=== PATIENT | female | born 1970 | race Caucasian/White ===

== ENCOUNTER → 2019-04-17 | Outpatient (CLI) | payer BC ==
--- NOTE | 2019-04-21 09:16 | MM ---
Reason for exam: screening (asymptomatic). Last mammogram was performed 5 years and 1 month ago. History: Patient is nulliparous. Physical Findings: A clinical breast exam by your physician is recommended on an annual basis and results should be correlated with mammographic findings. MG Screening Mammo w CAD Bilateral CC and MLO view(s) were taken. Prior study comparison: March 17, 2014, bilateral MG screening mammo w CAD. December 10, 2007, mammogram, performed at [facility]. There are scattered fibroglandular densities. No significant changes when compared with prior studies. ASSESSMENT: Negative, BI-RAD 1 RECOMMENDATION: Routine screening mammogram of both breasts in 1 year.
== END | disposition home or self-care (01) ==
LOC: RADMAMWWP 09:46
PROVIDERS: ATTEND Family Medicine
DX: Z12.31 Encounter for screening mammogram for malignant neoplasm of breast (principal)
CPT/HCPCS: 77067

== ENCOUNTER → 2019-05-13 | Outpatient (CLI) | payer BC ==
--- NOTE | 2019-05-13 14:45 | US ---
EXAMINATION TYPE: US thyroid st tissue head/neck DATE OF EXAM: 05/13/2019 COMPARISON: NONE CLINICAL HISTORY: 48-year-old female R94.6 ABN THYROID FUNCTION STUDIES. Abnormal thyroid function te st. TECHNIQUE: Multiple sonographic images of the thyroid gland are obtained. FINDINGS: GLAND SIZE: Right Lobe: 4.5 x 1.4 x 1.7 cm Overall Parenchyma: heterogenous Left Lobe: 4.2 x 1.5 x 1.8 cm Overall Parenchyma: heterogeneous Isthmus Thickness: 0.3 cm NODULES RIGHT: # of nodules measured on right: 0 LEFT: # of nodules measured on left: 0 ISTHMUS: # of nodules measured in the isthmus: 0 Bilateral neck scanned, no evidence of lymphadenopathy. IMPRESSION: Normal-sized thyroid gland without discrete nodule.
== END | disposition home or self-care (01) ==
LOC: RADUSWWP 10:01
PROVIDERS: ATTEND Family Medicine
DX: R94.6 Abnormal results of thyroid function studies (principal)
CPT/HCPCS: 76536

== ENCOUNTER → 2019-05-14 | Outpatient (CLI) | payer BC ==
--- NOTE | 2019-05-15 14:30 | NM ---
EXAMINATION TYPE: NM thyroid image w uptake DATE OF EXAM: 05/15/2019 COMPARISON: Thyroid ultrasound from yesterday HISTORY: Abnormal thyroid lab values per order. Symptoms of heat and cold intolerance with insomnia a nd palpitations for patient. TECHNIQUE: Thyroid iodine uptake is calculated and images performed after the oral administration of 305 uCi I-123 uCi 1-123 Capsule. FINDINGS: There is normal distribution of activity throughout the gland. The 4 hour iodine uptake is calculated at 15% (normal range 8-14%) slightly elevated from the normal range. The 24-hour iodine u ptake is calculated at 37% (normal range 15-35%) slightly elevated from the normal range. IMPRESSION: Increased uptake consistent with hyperthyroidism. Normal scan seen without hot nodule cor relates with ultrasound.
== END | disposition home or self-care (01) ==
LOC: RADNMMAIN 08:41
PROVIDERS: ATTEND Family Medicine
DX: E05.90 Thyrotoxicosis, unspecified without thyrotoxic crisis or storm (principal)
CPT/HCPCS: 78014; A9516

== ENCOUNTER → 2019-07-23 | Outpatient (CLI) | payer BC ==
[2019-07-23 17:26] LABS: ALT 29 U/L (8-44); AST 20 U/L (13-35); African American GFR (CKD) 87.6 (60.0-200.0); Albumin/Globulin Ratio 1.46 (1.60-3.17); Alkaline Phosphatase 77 U/L (41-126); BUN/Creat Ratio 11.11 Ratio (12.00-20.00); Calcium 9.1 mg/dL (8.7-10.3); Chloride 105 mmol/L (96-109); Globulin 2.8 g/dL (1.6-3.3); Glucose 83 mg/dL (70-110); Potassium 4.9 mmol/L (3.5-5.5); Sodium 140 mmol/L (135-145); Total Bilirubin 0.5 mg/dL (0.2-1.2); Total Protein 6.9 g/dL (6.2-8.2)
== END | disposition home or self-care (01) ==
LOC: LABWHC1 09:48
PROVIDERS: ATTEND Internal Medicine Endocrinology, Diabetes & Metabolism
DX: E05.00 Thyrotoxicosis with diffuse goiter without thyrotoxic crisis or storm (principal)
CPT/HCPCS: 36415; 80053; 84439; 84443; 84445; 84480

== ENCOUNTER → 2019-09-12 | Outpatient (CLI) | payer BC ==
[2019-09-12 16:33] LABS: T4, Free (Free Thyroxine) 0.9 ng/dL (0.80-1.80)
== END | disposition home or self-care (01) ==
LOC: LABWHC1 09:52
PROVIDERS: ATTEND Internal Medicine Endocrinology, Diabetes & Metabolism
DX: E05.00 Thyrotoxicosis with diffuse goiter without thyrotoxic crisis or storm (principal)
CPT/HCPCS: 36415; 84439; 84443; 84480

== ENCOUNTER → 2019-12-26 | Outpatient (CLI) | payer BC ==
[2019-12-27 00:36] LABS: T4, Free (Free Thyroxine) 1.2 ng/dL (0.80-1.80)
== END | disposition home or self-care (01) ==
LOC: LABWHC1 15:59
PROVIDERS: ATTEND Internal Medicine Endocrinology, Diabetes & Metabolism
DX: E05.00 Thyrotoxicosis with diffuse goiter without thyrotoxic crisis or storm (principal)
CPT/HCPCS: 36415; 84439; 84443; 84480

== ENCOUNTER → 2020-04-29 | Outpatient (CLI) | payer BC ==
[2020-04-29 17:56] LABS: Albumin/Globulin Ratio 1.48 (1.60-3.17); Anion Gap 8.9 mmol/L (4.00-12.00); BUN/Creat Ratio 16.25 Ratio (12.00-20.00); Calcium 8.9 mg/dL (8.7-10.3); Carbon Dioxide 25.1 mmol/L (21.6-31.8); Globulin 2.7 g/dL (1.6-3.3); Non-African American GFR(CKD) 87.2 (60.0-200.0); Potassium 4.9 mmol/L (3.5-5.5); Total Bilirubin 0.6 mg/dL (0.2-1.2); Total Protein 6.7 g/dL (6.2-8.2)
== END | disposition home or self-care (01) ==
LOC: LABWHC1 09:35
PROVIDERS: ATTEND Internal Medicine Endocrinology, Diabetes & Metabolism
DX: E05.00 Thyrotoxicosis with diffuse goiter without thyrotoxic crisis or storm (principal)
CPT/HCPCS: 36415; 80053; 84439; 84443; 84480

== ENCOUNTER → 2021-04-15 | Outpatient (CLI) | payer OTHER ==
--- NOTE | 2021-04-15 12:38 | ECHOF ---
Referral Reason:R01.1 Murmur MEASUREMENTS -------- HEIGHT: 160.0 cm WEIGHT: 103.4 kg BP: RVIDd: 3.3 cm (< 3.3) IVSd: 0.6 cm (0.6 - 1.1) LVIDd: 4.6 cm (3.9 - 5.3) LVPWd: 0.8 cm (0.6 - 1.1) IVSs: 1.3 cm LVIDs: 2.4 cm LVPWs: 1.9 cm LAESV Index (A-L): 23.35 ml/m Ao Diam: 3.1 cm (2.0 - 3.7) AV Cusp: 1.0 cm (1.5 - 2.6) LA Diam: 2.6 cm (2.7 - 3.8) MV EXCURSION: 18.395 mm (> 18.000) MV EF SLOPE: 105 mm/s (70 - 150) EPSS: 1.0 cm MV E Jeff: 1.00 m/s MV DecT: 184 ms MV A Jeff: 0.89 m/s MV E/A Ratio: 1.12 AV maxP.31 mmHg AV meanP.39 mmHg AR PHT: 297 ms RAP: 5.00 mmHg RVSP: 23.69 mmHg FINDINGS -------- This was a technically good study. The left ventricular size is normal. Left ventricular wall thickness is normal. Overall left vent ricular systolic function is normal with, an EF between 55 - 60 %. The diastolic filling pattern is normal for the age of the patient 12.74. The right ventricle is mildly enlarged. The left atrial size is normal. Normal LA size by volume 22+/-6 ml/m2. The right atrial size is normal. There is mild to moderate aortic valve sclerosis. There is mild aortic regurgitation. There is mi ld aortic stenosis present. Peak/mean gradient across the Aortic Valve is 21.31mmHg / 12.39mmHg. Can't exclude possible Bicuspid Aov. The mitral valve is normal. There is trace mitral regurgitation. The tricuspid valve appears structurally normal. Trace tricuspid regurgitation present. Right ayaka tricular systolic pressure is normal at < 35 mmHg. There is no pulmonic regurgitation present. The aortic root size is normal. Normal inferior vena cava with normal inspiratory collapse consistent with estimated right atrial pre ssure of 5 mmHg. There is no pericardial effusion. CONCLUSIONS -------- 1. The left ventricular size is normal. 2. Left ventricular wall thickness is normal. 3. Overall left ventricular systolic function is normal with, an EF between 55 - 60 %. 4. The diastolic filling pattern is normal for the age of the patient 12.74 5. The right ventricle is mildly enlarged. 6. There is mild aortic regurgitation. 7. There is mild aortic stenosis present. 8. Peak/mean gradient across the Aortic Valve is 21.31mmHg / 12.39mmHg. 9. Can't exclude possible Bicuspid Aov. 10. There is trace mitral regurgitation. 11. Trace tricuspid regurgitation present. 12. There is no pericardial effusion. [employer]LECT[employer] REPA[employer] SUPERVISOR: Lenka Castaneda RDCS
--- NOTE | 2021-04-19 10:19 | MM ---
Reason for exam: screening (asymptomatic). Last mammogram was performed 2 years ago. History: Patient is nulliparous. Taking hormonal contraceptives for 2 years beginning at age 48. Physical Findings: A clinical breast exam by your physician is recommended on an annual basis and results should be correlated with mammographic findings. MG Screening Mammo w CAD Bilateral CC and MLO view(s) were taken. Prior study comparison: April 17, 2019, bilateral MG screening mammo w CAD. March 17, 2014, bilateral MG screening mammo w CAD. There are scattered fibroglandular densities. No significant changes when compared with prior studies. ASSESSMENT: Negative, BI-RAD 1 RECOMMENDATION: Routine screening mammogram of both breasts in 1 year.
== END | disposition home or self-care (01) ==
LOC: RADMAMWWP 07:33
PROVIDERS: ATTEND Family Medicine
DX: Z12.31 Encounter for screening mammogram for malignant neoplasm of breast (principal); I08.3 Combined rheumatic disorders of mitral, aortic and tricuspid valves
CPT/HCPCS: 77067; 93306

== ENCOUNTER → 2024-02-15 | Outpatient (CLI) | payer BC ==
--- NOTE | 2024-02-18 08:34 | MM ---
Reason for Exam: Screening (asymptomatic). Last mammogram was performed 2 year(s) and 10 month(s) ago. Patient History: Menarche at age 15. Patient has no children. Perimenopausal. Currently using Hormonal Contraceptives, beginning at age 48 for 2 years. Risk Values: Mari 5 year model risk: 1.1%. NCI Lifetime model risk: 8.8%. Prior Study Comparison: 03/17/2014 Bilateral Screening Mammogram, [facility]. 04/17/2019 Bilateral Screening Mammogram, [facility]. 04/15/2021 Bilateral Screening Mammogram, [facility]. Tissue Density: The breasts are almost entirely fatty. Findings: Analyzed By CAD. Right breast: There is no suspicious group of microcalcifications or new suspicious mass. Left breast: There is no suspicious group of microcalcifications or new suspicious mass. Overall Assessment: Negative, BI-RAD 1 Management: Screening Mammogram of both breasts in [address] [facility] will attempt to contact patient to return for supplemental views and ultrasound if indicated. Patient should continue monthly self-breast exams. A clinical breast exam by your physician is recommended on an annual basis. This exam should not preclude additional follow-up of suspicious palpable abnormalities. Note on Mari scores and lifetime risk: 1. A Mari score greater than 3% is considered moderate risk. If this is the case, consider specialist referral to assess eligibility for a risk reducing agent. 2. If overall lifetime risk for the development of breast cancer is 20% or higher, the patient may qualify for future screening with alternating mammogram and breast MRI. Electronically signed and approved by: Saúl Palumbo DO
== END | disposition home or self-care (01) ==
LOC: RADMAMWWP 06:49
PROVIDERS: ATTEND Family Medicine
DX: Z12.31 Encounter for screening mammogram for malignant neoplasm of breast (principal)
CPT/HCPCS: 77067

== ENCOUNTER → 2025-01-14 | Outpatient (CLI) | payer BC ==
--- NOTE | 2025-01-14 08:51 | US ---
EXAMINATION TYPE: US transvaginal DATE OF EXAM: 01/14/2025 COMPARISON: NONE CLINICAL INDICATION: Female, 54 years old with history of N95.0 POSTMENOPAUSAL BLEEDING; Postmenopaus al bleeding TECHNIQUE: Transvaginal (TV). Doppler imaging: Not performed. FINDINGS: EXAM MEASUREMENTS: Uterus: 5.3 x 3.3 x 4.1 cm Endometrial Stripe: .3 cm Left Ovary: 2.7 x 2.3 x 2.5 cm 1. Uterus: Anteverted Nabothian cysts seen. 2. Endometrium: wnl 3. Right Ovary: Obscured by overlying bowel gas 4. Left Ovary: Cystic area seen 1.6 x 2.4 x 2.0 cm. 5. Bilateral Adnexa: wnl 6. Posterior cul-de-sac: wnl Incidental 2.4 cm simple thin-walled cyst in the left ovary. IMPRESSION: Endometrial stripe is not abnormally thickened. O-RADS 2021 [email or web address] [facility], , 01/14/2025 8:49 AM
== END | disposition home or self-care (01) ==
LOC: RADUSWWP 08:14
PROVIDERS: ATTEND Family Medicine
DX: N83.202 Unspecified ovarian cyst, left side (principal); N95.0 Postmenopausal bleeding; N88.8 Other specified noninflammatory disorders of cervix uteri
CPT/HCPCS: 76830

== ENCOUNTER → 2025-02-17 | Outpatient (CLI) | payer BC ==
--- NOTE | 2025-02-17 07:38 | MM ---
Reason for Exam: Screening (asymptomatic). Last screening mammogram was performed 12 month(s) ago. Patient History: Menarche at age 15. Patient has no children. Perimenopausal. Hormonal Contraceptives for 2 years from age 48 until age 53. Risk Values: Mari 5 year model risk: 1.1%. NCI Lifetime model risk: 8.6%. Prior Study Comparison: 04/17/2019 Bilateral Screening Mammogram, [facility]. 04/15/2021 Bilateral Screening Mammogram, [facility]. 02/15/2024 Bilateral MG screening mammo w CAD, [facility]. Tissue Density: There are scattered areas of fibroglandular density. Findings: Analyzed By CAD. A few tiny benign-appearing round calcifications anteriorly in the left breast are noted. There is no suspicious group of microcalcifications or new suspicious mass in either breast. Overall Assessment: Benign, BI-RAD 2 Management: Screening Mammogram of both breasts in 1 year. . Patient should continue monthly self-breast exams. A clinical breast exam by your physician is recommended on an annual basis. This exam should not preclude additional follow-up of suspicious palpable abnormalities. Note on Mari scores and lifetime risk: 1. A Mari score greater than 3% is considered moderate risk. If this is the case, consider specialist referral to assess eligibility for a risk reducing agent. 2. If overall lifetime risk for the development of breast cancer is 20% or higher, the patient may qualify for future screening with alternating mammogram and breast MRI. [facility], , 02/17/2025 7:35 AM. Electronically signed and approved by: Medardo Orellana M.D.
== END | disposition home or self-care (01) ==
LOC: RADMAMWWP 07:08
PROVIDERS: ATTEND Family Medicine
DX: Z12.31 Encounter for screening mammogram for malignant neoplasm of breast (principal); R92.323 Mammographic fibroglandular density, bilateral breasts; Z92.0 Personal history of contraception
CPT/HCPCS: 77067